=== PATIENT | male | born 1965 | race Caucasian/White ===

== ENCOUNTER 2023-03-20 00:45 | Observation (INO) ==
[2023-03-20] MEDS ORDERED: Piperacillin/Tazobac 3.375 BAG 3.375 GM/100 ML BAG IV ONE (01:30)
[2023-03-20] MEDS ORDERED: HYDROmorphone 1 MG/1 ML SYRINGE IV SLOW PU PRN (01:30)
[2023-03-20] MEDS ORDERED: hydrALAZINE 20 mg/ml 1 ML Vial IV IV SLOW PU PRN (01:35)
[2023-03-20] MEDS ORDERED: Ondansetron 4 mg VIAL 2 MG/ML 2 ml VIAL IV PRN ×2 (01:36→12:03)
[2023-03-20] MEDS ORDERED: Calcium Carb (TUMS) 500 mg CHEW TAB PO PRN (01:36)
[2023-03-20] MEDS ORDERED: Enalaprilat IV 1.25 mg/ml 1 ml VIAL (1.25 MG) IV PRN (01:37)
[2023-03-20] MEDS ORDERED: NS 0.9% 1000 ml BAG 1,000 ML IV SCH (01:45)
[2023-03-20] MEDS ORDERED: Morphine 4 MG/ML VIAL (1 ml) IV ONE (02:18)
[2023-03-20] MEDS ORDERED: Lidocaine 1% w EPI 1:200,000 SDV 30 ML VIAL ONE (10:21)
[2023-03-20] MEDS ORDERED: Bupivacaine 0.25% SDV 30 ML ONE (10:22)
[2023-03-20] MEDS ORDERED: Midazolam 2 mg/2 ml VIAL 1 mg/ml 2 ml VIAL (2 mg) ONE (10:26)
[2023-03-20] MEDS ORDERED: fentaNYL 100 mcg/2 ml 50 MCG/ML VIAL ONE ×2 (10:26→12:59)
[2023-03-20] MEDS ORDERED: Propofol 10 MG/ML 20 ML BTL ONE (10:26)
[2023-03-20] MEDS ORDERED: Dexmedetomidine 200 mcg/2 ml 2 ml VIAL (200 mcg) ONE (10:27)
[2023-03-20] MEDS ORDERED: Dexamethasone IV 4 MG/ML VIAL 1 ml VIAL ONE (10:27)
[2023-03-20] MEDS ORDERED: Rocuronium 50 mg VIAL 10 mg/ml 5 ml VIAL (50 mg) ONE (10:27)
[2023-03-20] MEDS ORDERED: ZOSYN 3.375 GM x ONE DOSE over 30 miuntes IV (11:00)
[2023-03-20] MEDS ORDERED: Metoclopramide 5 MG/ML VIAL (10 mg) ONE (11:09)
[2023-03-20] MEDS ORDERED: Ondansetron 4 mg VIAL 2 MG/ML 2 ml VIAL ONE (11:09)
[2023-03-20] MEDS ORDERED: HYDROmorphone 1 MG/1 ML SYRINGE IV PRN (12:03)
[2023-03-20] MEDS ORDERED: Naloxone 0.4 mg VIAL 0.4 mg/ml 1 ml VIAL IV PRN (12:03)
[2023-03-20] MEDS: fentaNYL 100 mcg/2 ml 50 MCG/ML VIAL IV PRN ×2 (13:01→13:30)
[2023-03-20 14:01] VITALS: BP 127/66
== END 2023-03-20 14:19 | disposition home or self-care (01) ==
LOC: ED 00:45 → SSU 00:45
PROVIDERS: ADMIT Surgery; ATTEND Surgery